=== PATIENT | male | born 1970 | race Asian ===

== ENCOUNTER 2023-03-23 13:26 | Outpatient (CLI) | payer OTHER ==
--- NOTE | 2023-03-23 14:40 | XRAY Report ---
PROCEDURE: Foot 3 View LT INDICATIONS: FOOT PAIN LEFT TECHNIQUE: 3 views of the foot were acquired. COMPARISON: None. FINDINGS: Bones: Question very subtle nondisplaced base of fifth metatarsal fracture. This is not definite. No other fractures or dislocations. Soft tissues: No suspicious soft tissue calcifications or masses. IMPRESSION: 1. Question very subtle nondisplaced base of fifth metatarsal fracture. Recommend correlation with cl inical examination for presence or absence of point tenderness. Reviewed by: Adria Retana MD on 03/23/2023 2:39 PM PDT Approved by: Adria Retana MD on 03/23/2023 2:39 PM PDT Station ID: [id number]
[2023-03-23 17:37] LABS: BASOPHILS % (AUTO) 0.6 %; EOSINOPHILS # (AUTO) 0.3 10^3/uL (0.0-0.7); EOSINOPHILS % (AUTO) 3.8 %; HCT - HEMATOCRIT 49.5 % (42.0-52.0); HGB - HEMOGLOBIN 16.1 g/dL (14.0-18.0); LYMPHOCYTES # (AUTO) 2.6 10^3/uL (1.5-3.5); LYMPHOCYTES % (AUTO) 39.3 %; MEAN CORPUSCULAR HEMOGLOBIN 28.8 pg (27.0-31.0); MEAN CORPUSCULAR HGB CONC 32.5 g/dL (32.0-36.0); MEAN CORPUSCULAR VOLUME 88.4 fL (80.0-94.0); MEAN PLATELET VOLUME 11.1 fL (7.4-11.4); MONOCYTES # (AUTO) 0.5 10^3/uL (0.0-1.0); MONOCYTES % (AUTO) 7.5 %; NEUTROPHILS # (AUTO) 3.2 10^3/uL (1.5-6.6); NEUTROPHILS % (AUTO) 48.5 %; PLT - PLATELET COUNT 257 10^3/uL (130-450); RED CELL DISTRIBUTION WIDTH 12.8 % (12.0-15.0); WHITE BLOOD COUNT 6.5 x10^3/uL (4.8-10.8)
[2023-03-23 17:57] LABS: ALBUMIN 4.5 g/dL (3.2-5.5); ALBUMIN/GLOBULIN RATIO 1.3 (1.0-2.2); BILIRUBIN,TOTAL 0.7 mg/dL (0.2-1.0); CALCIUM 9.5 mg/dL (8.5-10.3); CREATININE 0.9 mg/dL (0.6-1.2); POTASSIUM 3.8 mmol/L (3.5-5.0)
== END 2023-03-23 23:59 | disposition home or self-care (01) ==
LOC: DI.N 13:26
PROVIDERS: ATTEND Family Medicine
DX: M79.672 Pain in left foot (principal); I10 Essential (primary) hypertension
CPT/HCPCS: 36415; 80053; 84443; 85025

== ENCOUNTER 2023-08-10 15:29 | Emergency (ER) | payer OTHER ==
[2023-08-10 15:37] VITALS: BP 150/90; O2SAT 98
--- NOTE | 2023-08-10 16:14 | ED Physician Documentation ---
History of Present Illness - Stated complaint Stated Complaint: RT KNEE PX/GLF - Chief complaint Chief Complaint: Trauma Ext - Additonal information Additional information: 53-year-old male presents emergency department for evaluation of more than 1 week of right knee pain. He was walking on 01 August when he fell directly onto the patella while working at the [employer]. He has been walking since but pain has persisted now he has some mild swelling. He has used ibuprofen and diclofenac without resolution of pain. Has had no fevers. No history of similar injury to this knee Review of Systems Musculoskeletal: reports: Joint pain, Joint swelling PD PAST MEDICAL HISTORY - Past Medical History Past Medical History: Yes Cardiovascular: Hypertension Respiratory: None Neuro: None Endocrine/Autoimmune: None GI: None : None HEENT: None Psych: None Musculoskeletal: None Derm: None - Past Surgical History Past Surgical History: No - Present Medications Home Medications: Ambulatory Orders Medication Instructions Recorded Confirmed Acetaminophen [Tylenol] 500 mg PO TID #30 tablet 08/10/23 Ibuprofen [Advil] 400 mg PO Q6HR PRN 08/10/23 08/10/23 Ibuprofen [Motrin] 600 mg PO Q6H PRN #30 tab 08/10/23 amLODIPine [Norvasc] 5 mg PO DAILY 08/10/23 08/10/23 - Allergies Allergies/Adverse Reactions: Allergies Allergy/AdvReac Type Severity Reaction Status Date / Time No Known Drug Allergies Allergy Verified 08/10/23 15:33 - Social History Does the pt smoke?: No Smoking Status: Never smoker Does the pt drink ETOH?: No Does the pt have substance abuse?: No - Immunizations Immunizations are current?: Yes PD ED PE EXPANDED - Extremities Extremities: Right knee (Palpable swelling and effusion superior to the patella. No laxity on exam. No tenderness at the proximal fibula or tibia head. Most of the tenderness was elicited with palpation directly over the patella.) Results - Vitals Vitals: Vital Signs - 24 hr 08/10/23 15:33 Temperature 36.7 C Heart Rate 64 Respiratory 16 Rate Blood Pressure 150/90 H O2 Saturation 98 Oxygen O2 Source Room air - Rads (name of study) right knee Relevant Findings:: EMP independent interpretation of test (no acute bony process; effusion present) PD Medical Decision Making - ED course Complexity details: reviewed results, re-evaluated patient, d/w patient ED course: self on a telemetry below acute right knee pain and swelling around the patella after falling directly on it while at work on August 01. He has been ambulatory and using Motrin and Tylenol however pain is worsened along with swelling. An x-ray shows no obvious fracture but an effusion is palpable. I suspect he has a knee contusion. I have given him an Floyd wrap and crutches and recommended that he be nonweightbearing for 1 week. He should follow-up with a local walk-in clinic 1 week's time for reevaluation. 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 was completed at the bedside. Departure - Departure Disposition: 01 Home, Self Care Clinical Impression: Work related injury Contusion of right knee Qualifiers: Encounter type: initial encounter Qualified Code(s): S80.01XA - Contusion of right knee, initial encounter Condition: Stable Record reviewed to determine appropriate education?: Yes Instructions: ED Effusion Knee Prescriptions: Ibuprofen [Motrin] 600 mg PO Q6H PRN #30 tab PRN Reason: Pain Acetaminophen [Tylenol] 500 mg PO TID #30 tablet Comments: You fell in your knee while at work on 01 August. Since then you have continued to work and ambulate on it and unfortunately now you have a large amount of swelling around the knee this is called an effusion. This does make the knee painful. I would like you to stay off the knee and use crutches for ambulation. When out of bed for the next week please use the Floyd wrap to help compress the knee and reduce the swelling. Please take Tylenol 500 mg with food 2-3 times a day or alternate with ibuprofen 600 mg also with food 2-3 times a day. No working for the next week. Please follow-up at one of the local walk-in clinics in 1 week's time for reevaluation of your knee pain and clearance to return to work if improving. Forms: PCP List
--- NOTE | 2023-08-10 16:34 | XRAY Report ---
PROCEDURE: Knee 3 View RT INDICATIONS: injury/pain TECHNIQUE: 3 views of the right knee(s) were acquired. COMPARISON: None. FINDINGS: Bones: No fractures or dislocations. No suspicious bony lesions. Soft tissues: No knee joint effusion. No suspicious soft tissue calcifications or masses. IMPRESSION: No acute bony abnormality. If there remains a high clinical concern for fracture, consider cross-sect ional imaging now. If pain persists, consider repeat x-ray in 10-14 days or cross-sectional imaging. Reviewed by: Octavio Pickard MD on 08/10/2023 4:32 PM PDT Approved by: Octavio Pickard MD on 08/10/2023 4:32 PM PDT Station ID: [id number]
[2023-08-10] MEDS: HYDROcod/ACETAM 5/325 MG TABLET PO STA (17:15)
== END 2023-08-10 17:15 | disposition home or self-care (01) ==
LOC: ED 15:29
DX: S80.01XA Contusion of right knee, initial encounter (principal); W18.30XA Fall on same level, unspecified, initial encounter; Y93.01 Activity, walking, marching and hiking; Y92.59 Other trade areas as the place of occurrence of the external cause; Y99.0 Civilian activity done for income or pay; I10 Essential (primary) hypertension; Z79.899 Other long term (current) drug therapy
CPT/HCPCS: 1040M; 99283; 99284

== ENCOUNTER 2024-03-10 07:46 | Outpatient (CLI) | payer OTHER ==
[2024-03-10 12:57] LABS: ALBUMIN 4.8 g/dL (3.2-5.5); ALBUMIN/GLOBULIN RATIO 1.5 (1.0-2.2); ALKALINE PHOSPHATASE 51 IU/L (42-121); ALT ALANINE AMINOTRANSFERASE 41 IU/L (10-60); AST ASPARTATE AMINOTRANSFERASE 20 IU/L (10-42); BILIRUBIN,TOTAL 0.8 mg/dL (0.2-1.0); BUN - BLOOD UREA NITROGEN 12 mg/dL (6-20); CALCIUM 10.1 mg/dL (8.5-10.3); CARBON DIOXIDE - CO2 30 mmol/L (21-32); CHLORIDE 102 mmol/L (101-111); CHOL/HDL RATIO 6.2 (<5.0); CHOLESTEROL 255 mg/dL; CREATININE 0.9 mg/dL (0.6-1.3); GFR - MDRD 88 (>89); GLUCOSE 182 mg/dL (74-104); HDL CHOLESTEROL 41 mg/dL; POTASSIUM 4.1 mmol/L (3.5-4.5); SODIUM 137 mmol/L (135-145); TOTAL PROTEIN 8.1 g/dL (6.4-8.9); TRIGLYCERIDES 463 mg/dL (48-352)
[2024-03-10 13:15] LABS: LDL CHOLESTEROL,DIRECT 131 mg/dL (75-193); LDLD/HDL RATIO 3.2 (<3.6)
== END 2024-03-10 07:47 | disposition home or self-care (01) ==
LOC: LAB.N 07:46
PROVIDERS: ATTEND Nurse Practitioner Family
DX: I10 Essential (primary) hypertension (principal); Z13.220 Encounter for screening for lipoid disorders; R79.89 Other specified abnormal findings of blood chemistry
CPT/HCPCS: 36415; 80053; 80061; 83721